=== PATIENT | female | born 1980 | race Caucasian/White ===

== ENCOUNTER 2022-08-01 10:21 | Emergency (ER) | payer SELFPAY ==
[2022-08-01 10:40] VITALS: RESP 17; BMI 31.4
[2022-08-01 13:08] LABS: CALCIUM 9.1 mg/dL (8.5-10.1)
[2022-08-01 13:09] LABS: ALBUMIN 3.8 g/dl (3.4-5.0); MAGNESIUM 2.2 mg/dL (1.8-2.4)
[2022-08-01 13:10] LABS: BASO % 0.5 % (0-2.0); EOS % 2.8 % (0-4.5); HEMATOCRIT 42.1 % (32.4-45.2); HEMOGLOBIN 13.6 GM/dL (10.7-15.3); MCHC 32.3 g/dl (32.0-36.0); MEAN CELL VOLUME 89.8 fl (80-96); MEAN PLT VOLUME 8.6 fl (7.5-11.1); MONO % 3.2 % (3.8-10.2); NEUT % 75.5 % (42.8-82.8); PLATELET COUNT 233 10^3/uL (134-434); RBC 4.69 M/mm3 (3.60-5.2); RDW 12.8 % (11.6-15.6); WHITE BLOOD COUNT 9.3 K/mm3 (4.0-10.0)
[2022-08-01 13:12] LABS: CREATININE 0.8 mg/dL (0.55-1.3)
[2022-08-01 13:14] LABS: BILIRUBIN,TOTAL 0.8 mg/dL (0.2-1); TOT PROT 7.6 g/dl (6.4-8.2)
[2022-08-01 13:19] LABS: INR 1.04 (0.83-1.09)
[2022-08-01 13:22] LABS: ACTIVATED PTT 29.1 SECONDS (25.2-36.5)
[2022-08-01 15:04] LABS: EPI CELLS 5 /uL (0-25.1); HYALINE CASTS 0 /uL (0-3.1); PH,URINE 7.5 (5.0-8.0); URINE APPEARANCE CLEAR; URINE BACTERIA 137 /uL (0-1359); URINE BILIRUBIN NEGATIVE (NEGATIVE); URINE COLOR YELLOW; URINE GLUCOSE (UA) NEGATIVE (NEGATIVE); URINE KETONE NEGATIVE (NEGATIVE); URINE LEUK ESTERASE NEGATIVE (NEGATIVE); URINE NITRITE NEGATIVE (NEGATIVE); URINE PROTEIN NEGATIVE (NEGATIVE); URINE RBC 5 /uL (0-23.9); URINE UROBILINOGEN 0.2 mg/dL (0.2-1.0); URINE WBC 1 /uL (0-25.8)
[2022-08-01 18:31] VITALS: BP 122/76; PULSE 85; TEMP 98.5
== END 2022-08-01 17:30 | disposition home or self-care (01) ==
LOC: JER 10:21
DX: R07.9 Chest pain, unspecified (principal)
CPT/HCPCS: 0241U-QW; 36415; 71275-TC; 80053; 81003; 83735; 84484; 85025; 85379; 85610; 85730; 93005; 93010; 99285-25; Q9967

== ENCOUNTER 2022-10-27 15:07 | Emergency (ER) | payer OTHER ==
[2022-10-27 15:15] VITALS: BMI 25.5
[2022-10-27] MEDS ORDERED: ACETAMINOPHEN 325 MG TABLET (FP) PO ONE (17:26)
[2022-10-27] MEDS ORDERED: KETOROLAC TROMETHAMINE 15 MG/ML VIAL IM ONE (17:53)
[2022-10-27] MEDS ORDERED: ACETAMINOPHEN 325 MG TABLET (FP) ONE (18:00)
[2022-10-27] MEDS ORDERED: KETOROLAC TROMETHAMINE 15 MG/ML VIAL ONE (18:26)
[2022-10-27 18:37] VITALS: BP 135/79; PULSE 80; RESP 16; TEMP 98.2
== END 2022-10-27 18:41 | disposition home or self-care (01) ==
LOC: JER 15:07
PROC: 3E023GC Introduction of Other Therapeutic Substance into Muscle, Percutaneous Approach (ICD-10-PCS; principal; 2022-10-27)
DX: R51.9 Headache, unspecified (principal)
CPT/HCPCS: 99284-25

== ENCOUNTER 2024-07-03 09:50 | Emergency (ER) | payer OTHER ==
[2024-07-03 10:03] VITALS: BP 128/84; PULSE 95; RESP 18; TEMP 98; BMI 19.9
[2024-07-03 11:23] LABS: BASO % 0.6 % (0-2.0); EOS % 4.6 % (0-4.5); HEMATOCRIT 39.6 % (32.4-45.2); HEMOGLOBIN 13.4 GM/dL (10.7-15.3); LYMPH % 31.3 % (8-40); MCH 29.4 pg (25.7-33.7); MCHC 33.9 g/dl (32.0-36.0); MEAN CELL VOLUME 86.8 fl (80-96); MEAN PLT VOLUME 8.4 fl (7.5-11.1); MONO % 12.7 % (3.8-10.2); NEUT % 50.8 % (42.8-82.8); PLATELET COUNT 171 10^3/uL (134-434); RBC 4.56 M/mm3 (3.60-5.2); RDW 14.2 % (11.6-15.6); WHITE BLOOD COUNT 4.6 K/mm3 (4.0-10.0)
[2024-07-03 11:44] LABS: POTASSIUM 4.7 mmol/L (3.5-5.1)
[2024-07-03 11:46] LABS: CALCIUM 8.6 mg/dL (8.5-10.1)
[2024-07-03 11:47] LABS: ALBUMIN 3.5 g/dl (3.4-5.0); BLOOD UREA NITROGEN 9.6 mg/dL (7-18)
[2024-07-03 11:50] LABS: CREATININE 0.9 mg/dL (0.55-1.3)
[2024-07-03 11:51] LABS: BILIRUBIN,TOTAL 0.5 mg/dL (0.2-1)
[2024-07-03 11:52] LABS: TOT PROT 7.5 g/dl (6.4-8.2)
== END 2024-07-03 12:16 | disposition home or self-care (01) ==
LOC: JER 09:50
DX: K62.5 Hemorrhage of anus and rectum (principal)
CPT/HCPCS: 36415; 80053; 82272; 85025; 99283-25